=== PATIENT | female | born 1980 | race Caucasian/White ===

== ENCOUNTER 2024-06-29 14:27 | Outpatient (AMB) | payer BC, SELFPAY ==
[2024-06-29 14:37] VITALS: BP 108/66; PULSE 80; O2SAT 98; BMI 28.0
--- NOTE | 2024-06-29 14:37 | MHC.OFFVIS ---
Vital Signs 06/29/24 14:37 Height 5 ft 8 in Weight 184 lb 2 oz BMI 28.0 BP 108/66 Blood Pressure Location Lt brachial Position Sitting Pulse 80 Pulse Source Pulse Oximeter Pulse Oximetry (%) 98 Oxygen Delivery Method Room Air Intake Visit Reasons: persistent cough Allergies No Known Allergies Allergy (Verified 06/29/24 14:40) HPI HPI persistent cough: Details: Ynes is a pleasant 44-year-old female, former minimal smoker, with underlying asthma and hypothyroidism. She was referred by PCP for pulmonary evaluation for chronic cough. She reports symptoms started at the end of March with productive cough, chest tightness, wheezing and dyspnea with exertion. She was prescribed prednisone as well as azithromycin with minimal effect. Chest x-rays have been reportedly negative. She was then switched to Augmentin and started on Wixela on 06/24 with 75% improvement in symptoms. She has two days left of abx. She still reports labored breathing with prolonged talking or exertion and dry cough, using albuterol 1-2 times per day with good effect. She denies wheezing or chest tightness. She reports after URI prolonged respiratory symptoms usually requiring prednisone on an annual basis for many years. She denies prior history of asthma but PCP recently diagnosed given clinical features. She reports paternal grandmother with asthma otherwise no pertinent family history. She reports seasonal allergies uses Zyrtec on a daily basis and Flonase p.r.n., no recent allergy testing. She does have a dog at home. [facility] Social History (Updated 06/29/24 @ 14:40 by Addie Feliciano [facility]) Patient Tobacco Use Status: Former Tobacco user Review of Systems Const Denies chills, Denies excessive sweating, Denies fever(s), Denies headache(s) and Denies night sweats Eyes Denies dry eyes, Denies irritation and Denies itchy eyes ENT Reports Normal hearing present, Denies headache(s), Denies nasal congestion, Denies nasal discharge, Reports post nasal drip and Denies sore throat Card Denies chest pain, Denies chest pain at rest, Denies chest pain with activity, Denies claudication, Denies leg edema, Reports dyspnea on exertion, Denies orthopnea and Denies paroxysmal nocturnal dyspnea Resp Denies chest congestion, Reports cough, Denies hemoptysis, Denies excessive phlegm production, Denies pain on inspiration, Denies pain with cough, Reports dyspnea on exertion, Denies stridor and Denies wheezing Musc Denies myalgias Neuro Reports Normal hearing present and Denies headache(s) Endo Denies excessive sweating Diego/Lymph Denies lymphadenopathy Aller/Immun Denies itchy eyes, Denies seasonal rhinorrhea and Denies wheezing Physical Exam Vital Signs: Last Vital Signs Pulse 80 06/29/24 14:37 BP 108/66 06/29/24 14:37 Pulse Ox 98 06/29/24 14:37 Oxygen Delivery Method Room Air 06/29/24 14:37 BMI result Body Mass Index 28.0 Const General: cooperative, healthy appearing, comfortable, no acute distress, well developed and alert Nutritional Appearance: average body habitus Orientation/consciousness: patient oriented x3 Limitations: no limitations HEENT Head: Yes normal to inspection, Yes normocephalic and Yes atraumatic Ears: hearing grossly normal bilaterally and external ears normal Eyes General: appearance normal, both eyes and all related structures Eyelids: Yes eyelids normal Sclerae: sclerae normal EOM: EOMs intact bilaterally Neck Neck: Yes normal visual inspection and Yes no lymphadenopathy Lymphatic: no lymphadenopathy noted Chest Chest palpation & inspection: normal inspection of the chest Resp Other: diminished lung sounds improved aeration with duoneb in office Effort & Inspection: normal respiratory effort, able to speak in complete sentences, no audible wheezes, Actively coughing Quality: dry, no stridor, not tachypneic, no tripod positioning and no use of accessory muscles Auscultation: diminished lung sounds Cardio Jugular venous distension: no JVD Rate: regular rate Rhythm: regular rhythm Skin Other: warm, dry General skin exam: no rashes or lesions noted Neuro General: patient oriented x3 Cranial nerves: Yes Normal hearing present Cognition (Neuro): normal cognition Gait exam (Neuro): Normal gait present Extrem General: Yes normal to inspection, Yes capillary refill normal, Yes no clubbing, cyanosis or edema and Yes no pedal edema Psych Appearance: grossly normal and well kempt Speech and movement: Normal speech and movement present and Clear speech present Affect: normal affect Attitude: cooperative Thought process: Normal thought process present Thought content: Normal thought content present Insight: Good insight present (Psych) Judgement: Good judgement present (Psych) Assessment & Plan Assessment & Plan (1) Asthma: Code(s): J45.909 - Unspecified asthma, uncomplicated Category: Medical (2) Environmental allergies: Code(s): Z91.09 - Other allergy status, other than to drugs and biological substances Category: Medical Plan Ynes presents for pulmonary evaluation for chronic cough. She reports significant improvements with Augmentin and Wixela, advised to continue. She is aware to call if symptoms worsen. Will send for PFT to assess for any obstructive defect. Will send for RAST to assess for any allergic component. All questions were answered and patient is in agreement of plan. Will follow-up in 4-6 weeks or sooner if needed. Orders: Orders Resp Allergy Profile Region I Today Z91.09 - Other allergy status, other than to drugs and biological substances PFT pulmonary function test Today J45.909 - Unspecified asthma, uncomplicated Complete Blood Count Auto Diff Today Z91.09 - Other allergy status, other than to drugs and biological substances Immunoglobulin E Today Z91.09 - Other allergy status, other than to drugs and biological substances Coding Level of Care Code New Pt Level 4 (91901) Diagnoses Asthma J45.909 Environmental allergies Z91.09
== END 2024-06-29 15:25 | disposition home or self-care (01) ==
PROVIDERS: PCP Family Medicine; Visit Provider Nurse Practitioner Family
DX: J45.909 Unspecified asthma, uncomplicated (principal); Z91.09 Other allergy status, other than to drugs and biological substances
CPT/HCPCS: 99204

== ENCOUNTER → 2024-06-29 14:27 | Outpatient (BNVA) | payer BC, SELFPAY | PROVIDERS: PCP Family Medicine; Visit Provider Nurse Practitioner Family ==

== ENCOUNTER 2024-06-29 15:24 | Outpatient (REF) | payer BC, SELFPAY ==
[2024-06-29 17:31] LABS: MANUAL DIFF FLAG NO
[2024-06-29 17:38] LABS: Basophils Percent Auto 0.5 % (0-2); Eosinophils Percent Auto 0.7 % (0-4); Hematocrit 41.1 % (37.0-47.0); Hemoglobin 14.6 g/dl (12.0-16.0); Imm Gran Abs Auto 0.03 X10*3/uL (0.00-0.03); Imm Gran Pct Auto 0.5 % (0.0-0.4); Lymphocytes Absolute Auto 1.6 X10*3/uL (1.2-4.9); Lymphocytes Percent Auto 25.9 % (20-40); Mean Corpuscular HGB Conc 35.5 g/dl (31.0-35.0); Mean Corpuscular Hemoglobin 30.4 pg (27.0-33.0); Mean Corpuscular Volume 85.4 fL (80.0-98.0); Mean Platelet Volume 9.2 fL (9.4-12.3); Monocytes Absolute Auto 0.6 X10*3/uL (0.1-1.2); Monocytes Percent Auto 10.2 % (2-11); Neutrophils Absolute Auto 3.7 x10*3/uL (2.0-8.3); Neutrophils Percent Auto 62.2 % (45-73); Platelet Count 291 X10*3/uL (160-400); Red Blood Count 4.81 X10*6/uL (4.20-5.50); Red Cell Distribution Width 12.5 % (11.0-16.0)
[2024-06-30 21:18] LABS: Class Alternaria alternata 0; Class Aspergillus fumigatus 0; Class Bermuda Grass 0; Class Birch 0; Class Cat Dander 0; Class Cladosporium herbarum 0; Class Cockroach 0; Class Common Ragweed 0; Class Cottonwood 0; Class Derm. pterony 2; Class Dermatophagoides farinae 1; Class Dog Dander 0; Class Elm 0; Class Maple Box Elder 0; Class Mountain Cedar 0; Class Mouse Urine Protein 0; Class Mugwort 0; Class Oak 0; Class Penicillium crysogenum 0; Class Rough Pigweed 0; Class Sheep Sorrel 0; Class Sycamore 0; Class Timothy Grass 0; Class Walnut Tree 0; Class White Ash 0; Class White Mulberry 0; D001 IgE D pteronyssinus 0.73 kU/L; D002 - IgE D farinae 0.61 kU/L; E001 - IgE Cat Dander <0.10 kU/L; E005 - IgE Dog Dander <0.10 kU/L; E072-IgE Mouse Urine <0.10 kU/L; G002 IgE Bermuda Grass <0.10 kU/L; G006 - IgE Timothy Grass <0.10 kU/L; I006-IgE Cockroach, German <0.10 kU/L; Immunoglobulin E 26 kU/L (<OR=114); M001 IgE Penicillium chrysogen <0.10 kU/L; M002 - IgE Cladosporium herbar <0.10 kU/L; M003 - IgE Aspergillus fumigat <0.10 kU/L; M006 - IgE Alternaria alternat <0.10 kU/L; T001 IgE Maple/Box Elder <0.10 kU/L; T003 IgE Common Silver Birch <0.10 kU/L; T006 - IgE Cedar, Mountain <0.10 kU/L; T007 - IgE Oak, White <0.10 kU/L; T008 IgE Elm, American <0.10 kU/L; T010 - IgE Walnut <0.10 kU/L; T011 - IgE Maple Leaf Sycamore <0.10 kU/L; T014 - IgE Cottonwood <0.10 kU/L; T015 - IgE Ash, White <0.10 kU/L; T070 - IgE White Mulberry <0.10 kU/L; W001 - IgE Ragweed, Short <0.10 kU/L; W006 - IgE Mugwort <0.10 kU/L; W014 IgE Pigweed, Common <0.10 kU/L; W018 IgE Sheep Sorrel <0.10 kU/L
== END 2024-06-29 15:25 | disposition home or self-care (01) ==
LOC: HO.WFDLDS 15:24
PROVIDERS: Visit Provider Nurse Practitioner Family
DX: Z91.09 Other allergy status, other than to drugs and biological substances (principal)
CPT/HCPCS: 36415; 82785; 85025; 86003

== ENCOUNTER 2024-08-12 07:44 | Outpatient (REF) | payer BC, SELFPAY ==
--- NOTE | 2024-08-12 07:49 | PFT_ITS ---
Indication: Asthma Spirometry [FEV1 to FVC 89; FEV1 3.71 L; FVC 4.15 L. No significant response to bronchodilators noted.] Lung Volumes [Total lung capacity 89% predicted; expiratory reserve volume 111% predicted] Diffusion Capacity [DLCO 104% predicted] Comparisons [none] Interpretation [No obstructive nor restrictive ventilatory defects identified. No significant response to bronchodilators noted. Normal lung volumes. Normal diffusing capacity. This is consistent with normal lung mechanics. If asthma is in differential methacholine shortness short be helpful in assessing for hyperreactive airways. Clinical correlation warranted.] MTDD
[2024-08-12 09:21] VITALS: PULSE 73; O2SAT 99
== END 2024-08-12 07:45 | disposition home or self-care (01) ==
LOC: HO.RESP 07:44
PROVIDERS: Visit Provider Nurse Practitioner Family
DX: J45.909 Unspecified asthma, uncomplicated (principal)
CPT/HCPCS: 94010; 94640; 94727; 94729

== ENCOUNTER → 2024-08-12 07:49 | Outpatient (BNV) | payer BC, SELFPAY | PROVIDERS: Visit Provider Hospitalist | DX: J45.909 Unspecified asthma, uncomplicated (principal) | CPT/HCPCS: 94060; 94727; 94729 ==

== ENCOUNTER 2024-08-19 10:10 | Outpatient (AMB) | payer BC, SELFPAY ==
[2024-08-19 10:41] VITALS: BP 118/62; PULSE 71; O2SAT 99; BMI 28.1
--- NOTE | 2024-08-19 10:41 | A.OFFVIS_ITS ---
Vital Signs 08/19/24 10:41 Height 5 ft 8 in Weight 185 lb BMI 28.1 BP 118/62 Blood Pressure Location Lt brachial Position Sitting Pulse 71 Pulse Source Pulse Oximeter Pulse Oximetry (%) 99 Oxygen Delivery Method Room Air Intake Visit Reasons: Asthma Defense Analyst Required: No Commutator Operator: Commutator Operator offered & declined Accompanied by: Self / Same As Patient Allergies No Known Allergies Allergy (Verified 08/19/24 10:46) Medication List - Last Reconciled 08/19/24 by Shreya Biggs LPN albuterol sulfate 90 mcg/actuation 2 puffs inhalation Q4-6H PRN cetirizine (Zyrtec) 10 mg PO DAILY PRN fluoxetine (Prozac) 40 mg PO DAILY fluticasone propion-salmeterol 100-50 mcg/dose (Wixela Inhub) 1 inh inhalation BID semaglutide (weight loss) (Wegovy) 2.4 mg subcut QWEEK thyroid (pork) ([place] Thyroid) 15 mg PO DAILY thyroid (pork) ([place] Thyroid) 60 mg PO DAILY HPI HPI Asthma: Details: Ynes is a pleasant 44-year-old female, former minimal smoker, with underlying asthma and hypothyroidism. She was initially referred by PCP for pulmonary evaluation for chronic cough however treated with Augmentin and has had resolution of cough. She has been maintained on Wixela 100 mcg and continues with dyspnea on exertion and inability to fully inspire. Since the last visit, patient reports new rx of omeprazole for possible silent reflux contributing to persistent nausea/vomiting. Today she presents to review PFT and RAST. She denies any visits to urgent care or hospitalizations related to respiratory distress since the last visit. [facility] Social History (Updated 06/29/24 @ 14:40 by Addie Feliciano [facility]) Patient Tobacco Use Status: Former Tobacco user Review of Systems Const Denies chills, Denies excessive sweating, Denies fever(s), Denies headache(s) and Denies night sweats Eyes Denies dry eyes, Denies irritation and Denies itchy eyes ENT Reports Normal hearing present, Denies headache(s), Denies nasal congestion, Denies nasal discharge, Reports post nasal drip and Denies sore throat Card Denies chest pain, Denies chest pain at rest, Denies chest pain with activity, Denies claudication, Denies leg edema, Reports dyspnea on exertion, Denies orthopnea and Denies paroxysmal nocturnal dyspnea Resp Denies chest congestion, Denies cough, Denies hemoptysis, Denies excessive phlegm production, Denies pain on inspiration, Denies pain with cough, Reports dyspnea on exertion, Denies stridor and Denies wheezing Musc Denies myalgias Neuro Reports Normal hearing present and Denies headache(s) Endo Denies excessive sweating Diego/Lymph Denies lymphadenopathy Aller/Immun Denies itchy eyes, Denies seasonal rhinorrhea and Denies wheezing Physical Exam Vital Signs: Last Vital Signs Pulse 71 08/19/24 10:41 BP 118/62 08/19/24 10:41 Pulse Ox 99 08/19/24 10:41 Oxygen Delivery Method Room Air 08/19/24 10:41 BMI result Body Mass Index 28.1 Const General: cooperative, healthy appearing, comfortable, no acute distress, well developed and alert Nutritional Appearance: average body habitus Orientation/consciousness: patient oriented x3 Limitations: no limitations HEENT Head: Yes normal to inspection, Yes normocephalic and Yes atraumatic Ears: hearing grossly normal bilaterally and external ears normal Eyes General: appearance normal, both eyes and all related structures Eyelids: Yes eyelids normal Sclerae: sclerae normal EOM: EOMs intact bilaterally Neck Neck: Yes normal visual inspection and Yes no lymphadenopathy Lymphatic: no lymphadenopathy noted Chest Chest palpation & inspection: normal inspection of the chest Resp Effort & Inspection: normal respiratory effort, able to speak in complete sentences, no audible wheezes, Actively coughing Quality: dry, no stridor, not tachypneic, no tripod positioning and no use of accessory muscles Auscultation: diminished lung sounds Cardio Jugular venous distension: no JVD Rate: regular rate Rhythm: regular rhythm Skin Other: warm, dry General skin exam: no rashes or lesions noted Neuro General: patient oriented x3 Cranial nerves: Yes Normal hearing present Cognition (Neuro): normal cognition Gait exam (Neuro): Normal gait present Extrem General: Yes normal to inspection, Yes capillary refill normal, Yes no clubbing, cyanosis or edema and Yes no pedal edema Psych Appearance: grossly normal and well kempt Speech and movement: Normal speech and movement present and Clear speech present Affect: normal affect Attitude: cooperative Thought process: Normal thought process present Thought content: Normal thought content present Insight: Good insight present (Psych) Judgement: Good judgement present (Psych) Assessment & Plan Assessment & Plan (1) Asthma: Code(s): J45.909 - Unspecified asthma, uncomplicated Category: Medical (2) Allergic rhinitis: Code(s): J30.9 - Allergic rhinitis, unspecified Category: Medical Plan Reviewed PFT which revealed no obstructive nor restrictive ventilatory defects identified. No significant response to bronchodilators noted. Normal lung volumes and diffusing capacity. RAST + dust mites. She continues to report suboptimal effect with Wixela 100mcg, will increase to 250 mcg and add singulair. Side effects reviewed. All questions were answered and patient is in agreement of plan. Will follow up in 6-8 weeks or sooner if needed. Medications: New montelukast (Singulair) 10 mg PO BEDTIME 30 tabs 3RF fluticasone propion-salmeterol 250-50 mcg/dose (Wixela Inhub) 1 inh inhalation Q12H 60 ea 3RF Coding Level of Care Code Est Pt Level 4 (74498) Diagnoses Asthma J45.909 Allergic rhinitis J30.9
--- OUTSIDE RECORDS SUMMARY | 2024-08-19 10:49 | XMS_ITS ---
Author Organization Unknown Problems Problem Status Start date Recorded date Hypercholesteremia active 2023-05-11 2023-04-20 3T18:54:45Z Obesity active 2023-02-25 9949-06-51L10:4 2:34Z Fatty liver active 2023-03-06 8331-21-65X82:5 4:54Z Facial injury active 2023-05-11 6441-28-20E65: 51:53Z Breast cancer screening by mammogram active 2022 Immunization counseling active 2023-02-252023T20:57:49Z Encounter for wellness examination active 2023-07 Skin cancer screening active 2024-06-082023-07T20:58:44Z Colon cancer screening active 2023-02-2503-06T18:55:09Z Hypothyroidism active 2023-02-25 3260-90-92M96 :23:09Z Facial twitching resolved 2023-02-25 2023-05-11T 18:51:19Z Asthma active 2024-06-08 7986-26-29I06:0 2:30Z Cardiac risk counseling active 2023-02-252022T16:05:53Z Psychophysiologic sleep disorder active Anxiety active 2023-02-25 8783-98-82Y49:3 4:27Z Cervical cancer screening active 2023-02-2512-06-20T20:58:32Z Vital Signs Observation / Date Jun 08, 2024 Aug 17, 2024 Body Mass Index (BMI) 27.22 kg/m2 27.22 kg/m 2 Height 172.72 cm Weight 81.01429196227108 kg 81.11231054 069943 kg Plan of Treatment Description Planned Activity Planned Timing - Referral to a GI specialist for further evaluation. Referral for a psychiatric consultation, with a preference for telehealth.Symp toms may be related to stress and anxiety, potentially indicative of IBS. Differential diagnosis includes possible acid-related issues.Referral to a GI specialist for further evaluation, including potential EGD. Prescription for Prilosec to manage potential acid issues. Recommendation to follow a clear liquid diet for a few days, then progress to a bland diet. Prescription for Zofran for nausea as needed. Referral for psychiatric evaluation to address stress and anxiety.Risks and side effects: Advised to seek emergent care if experiencing bloody vomiting or diarrhea.Referr al to a GI specialist for further evaluation, including potential EGD. Prescription for Prilosec to manage potential acid issues. Recommendation to follow a clear liquid diet for a few days, then progress to a bland diet. Prescription for Zofran for nausea as needed. Referral for psychiatric evaluation to address stress and anxiety.High stress levels due to work, potentially contributing to GI symptoms.Referr al for psychiatric evaluation, with preference for telehealth services. Aug 17, 29, 29, 29, 29, 2024Jan 29, 2024 Encounters Encounter Type Performer Location Encounter Date Encoun ter Notes unknown [facility] no notes unknown Poppy Garcia - n o notes unknown [facility] no notes unknown CHRIS [facility] no notes unknown Z[facility] no notes Patient Care team information Name Category Status Period Participants - - Proposed period not known - - - Proposed period not known - - - Proposed period not known - - - Proposed period not known - - - Proposed period not known - - Episode of care-focu sed care team Proposed 2180-33-31X88:02:42+00:00 - 1793-02-33Y13:02:42+00:00 - - Episode of care-focu sed care team Proposed 0306-79-42L29:02:44+00:00 - 9953-99-77U41:02:44+00:00 - - Episode of care-focu sed care team Proposed 8915-01-26P68:50:59+00:00 - 3111-95-61Y40:50:59+00:00 - - Episode of care-focu sed care team Proposed 5790-12-68Z70:16:23+00:00 - 7158-97-99S90:16:23+00:00 - - Episode of care-focu sed care team Proposed 2535-24-23I64:51:39+00:00 - 7337-74-49M35:51:39+00:00 - Notes Author - Date Note - 8554-39-66Z23:02:4 5+00:00 No data available - 6735-57-78L12:51:3 9+00:00 No data available 2024-06-13 10:44:25 Asthma - 5730-50-48X41:02:43+00:00* No data available - 1821-23-14G75:16:23+00:00* Date of Service Physical Exam 2024-08-17 11:30:00 General: Well appear ing, no acute distressResp: Unlabored breathingPsych: Appropriate affect - 0478-21-88I48:16:23+00:00no notes- 9424-98-01U57:50:59+00:00no notes- 7984-53-19J68:16:23+00:00* Date of Service Review of Systems 2024-08-17 11:30:00 General: Denies feve rs or chillsResp: Denies shortness of breathCVS: Denies chest painGI: positive for nausea, vomiting, diarrhea, and constipationGU: Denies dysuria, hematuria, or urinary frequency - 6511-90-38H31:02:43+00:00* No data available - 0282-50-88F78:02:45+00:00* Date of Service Assessments 2024-06-24 07:58:26 Asthma - 4400-50-50E48:02:43+00:00no notes- 9910-45-97G83:50:59+00:00* Date of Service Assessments 2024-06-08 12:15:00 Encounter for amirah ss examinationEncounter for behavioral health screeningEncounter for counseling regarding immunizationColon cancer screeningBreast cancer screeningCervical cancer screeningAsthmaSkin cancer screeningHypothyroidismAnxietyPsychophysiologic sleep disorderHistory of obesityHypercholesteremiaFatty liver - 7053-86-01H30:02:43+00:00* Date of Service Assessments 2024-08-15 09:24:20 Vomiting - 9061-30-84K21:50:59+00:00* Date of Service Physical Exam 2024-06-08 12:15:00 General: Well-appear ing, no acute distressResp: No cough, SOB or wheezing, normal RRNS: Alert & oriented x 3Psych: Normal mood and affect - 0577-34-92J34:51:39+00:00* No data available - 4281-87-51L08:16:23+00:00* Date of Service Assessments 2024-08-17 11:30:00 Abdominal painNausea & vomitingStress at work - 7055-51-76J02:50:59+00:00* Date of Service Review of Systems 2024-06-08 12:15:00 General: All other p ertinent ROS negative - 7047-96-03O03:02:45+00:00* No data available - 5946-32-25T96:51:39+00:00no notes
== END 2024-08-19 11:19 | disposition home or self-care (01) ==
PROVIDERS: PCP Family Medicine; Visit Provider Nurse Practitioner Family
DX: J45.909 Unspecified asthma, uncomplicated (principal); J30.9 Allergic rhinitis, unspecified
CPT/HCPCS: 99214

== ENCOUNTER → 2024-08-19 10:10 | Outpatient (BNVA) | payer BC, SELFPAY | PROVIDERS: PCP Family Medicine; Visit Provider Nurse Practitioner Family ==

== ENCOUNTER 2024-08-30 10:20 | Outpatient (AMB) | payer BC, SELFPAY ==
[2024-08-30 10:36] VITALS: BP 122/60; PULSE 81; O2SAT 97; BMI 27.5
--- NOTE | 2024-08-30 10:36 | MHC.OFFVIS ---
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 Electric Required: No Head Waiter: Head Waiter offered & declined Accompanied by: Self / Same As Patient Allergies No Known Allergies Allergy (Verified 08/30/24 10:40) Medication List - Last Reconciled 08/30/24 by Shreya Biggs LPN albuterol sulfate 90 mcg/actuation 2 puffs inhalation Q4-6H PRN cetirizine (Zyrtec) 10 mg PO DAILY PRN fluoxetine (Prozac) 40 mg PO DAILY fluticasone propion-salmeterol 250-50 mcg/dose (Wixela Inhub) 1 inh inhalation Q12H montelukast (Singulair) 10 mg PO BEDTIME semaglutide (weight loss) (Wegovy) 2.4 mg subcut QWEEK thyroid (pork) ([place] Thyroid) 15 mg PO DAILY thyroid (pork) ([place] Thyroid) 60 mg PO DAILY HPI HPI Sick looking for antibiotics/pred: Details: Ynes is a pleasant 44-year-old female, former minimal smoker, with underlying asthma and hypothyroidism. She was initially referred by PCP for pulmonary evaluation for chronic cough however treated with Augmentin in June and has had resolution of cough. At the last visit, she Wixela was increased to 250 mcg as she continued to report dyspnea on exertion and inability to fully inspire. Unfortunately, she developed URI with chest congestion, difficulty expectorating, chest tightness and dyspnea over the last week. She denies fevers, endorses chills, no known sick contacts. She has been using albuterol MDI with moderate effect. FOR[facility]LY [facility] Social History Patient Tobacco Use Status: Former Tobacco user Review of Systems Const Denies excessive sweating, Denies fever(s), Denies headache(s) and Denies night sweats Eyes Denies dry eyes, Denies irritation and Denies itchy eyes ENT Reports Normal hearing present, Denies headache(s), Denies nasal congestion, Denies nasal discharge, Denies post nasal drip and Denies sore throat Card Denies chest pain, Denies chest pain at rest, Denies chest pain with activity, Denies claudication, Denies leg edema, Denies orthopnea and Denies paroxysmal nocturnal dyspnea Resp Denies excessive phlegm production, Denies pain on inspiration, Denies pain with cough, Denies stridor and Denies wheezing Musc Denies myalgias Neuro Reports Normal hearing present and Denies headache(s) Endo Denies excessive sweating Diego/Lymph Denies lymphadenopathy Aller/Immun Denies itchy eyes, Denies seasonal rhinorrhea and Denies wheezing Physical Exam Vital Signs: Last Vital Signs Pulse 81 08/30/24 10:36 BP 122/60 08/30/24 10:36 Pulse Ox 97 08/30/24 10:36 Oxygen Delivery Method Room Air 08/30/24 10:36 BMI result Body Mass Index 27.5 Const General: cooperative, healthy appearing, no acute distress, well developed and alert Orientation/consciousness: patient oriented x3 Limitations: no limitations HEENT Head: Yes normal to inspection, Yes normocephalic and Yes atraumatic Ears: hearing grossly normal bilaterally and external ears normal Eyes General: appearance normal, both eyes and all related structures Eyelids: Yes eyelids normal Sclerae: sclerae normal EOM: EOMs intact bilaterally Neck Neck: Yes normal visual inspection and Yes no lymphadenopathy Lymphatic: no lymphadenopathy noted Chest Chest palpation & inspection: normal inspection of the chest Resp Other: persistent harsh cough throughout visit, with postexhalation cough throughout exam, moderately improved with DuoNeb Effort & Inspection: normal respiratory effort, able to speak in complete sentences, no audible wheezes, no stridor, not tachypneic, no tripod positioning and no use of accessory muscles Auscultation: crackles on the left in the lower lung cisse Cardio Jugular venous distension: no JVD Rate: regular rate Rhythm: regular rhythm Skin Other: warm, dry General skin exam: no rashes or lesions noted Neuro General: patient oriented x3 Cranial nerves: Yes Normal hearing present Cognition (Neuro): normal cognition Gait exam (Neuro): Normal gait present Extrem General: Yes normal to inspection, Yes capillary refill normal, Yes no clubbing, cyanosis or edema and Yes no pedal edema Psych Appearance: grossly normal and well kempt Speech and movement: Normal speech and movement present and Clear speech present Affect: normal affect Attitude: cooperative Thought process: Normal thought process present Thought content: Normal thought content present Insight: Good insight present (Psych) Judgement: Good judgement present (Psych) Office Procedures Nebulizer Treatment Nebulizer Treatment 37963-Ofovaiult/MDI RX initial, or Nebulizer Subsequent Treatment Office Meds ipratropium 0.5 mg-albuterol 3 mg (2.5 mg base)/3 mL nebulization soln Performing Provider: Jessica Mosley NP Performing Location: [facility] Administered by: Shreya Biggs LPN on 08/30/24 11:06 Dose Route Admin Location Dispensed Lot Number Expiration Date NDC Tour Actor 3 mL inhalation 3 mL [id number] 03/19/26 92736-855-86 [place] Assessment & Plan Assessment & Plan (1) Asthma: Code(s): J45.909 - Unspecified asthma, uncomplicated Category: Medical (2) Allergic rhinitis: Code(s): J30.9 - Allergic rhinitis, unspecified Category: Medical Plan Will treat bronchitic symptoms with doxycycline and prednisone. Will also send for CXR as LLL inspiratory crackles appreciated. She is aware to call if symptoms do not improve. Will also send nebulizer with albuterol solution for home use. All questions were answered and patient is in agreement of plan. Will follow up for regularly scheduled appt or sooner if needed. Orders: Orders AMB Nebulizer Treatment Today J45.909 - Unspecified asthma, uncomplicated XR chest 2V Today R05.9 - Cough, unspecified Medications: New albuterol sulfate 2.5 mg (3 mL) inhalation Q4-6H PRN 180 mL 3RF shortness of breath or wheezing prednisone see taper instructions; 40 mg Daily x3 days, 30 mg daily x3 days, 20 mg daily x3 days, 10 mg daily x3 days 10 mg PO DIRECTED 30 tabs 0RF doxycycline hyclate 100 mg PO BID 14 caps 0RF Coding Level of Care Code Est Pt Level 4 (19431) Diagnoses Asthma J45.909 Allergic rhinitis J30.9 CPT Codes Nebulizer Treatment - Nebulizer Treatment, initial or subsequent: 50031-Hypcsxeuu/MDI RX initial, or Nebulizer Subsequent Treatment ([id number])
== END 2024-08-30 12:40 | disposition home or self-care (01) ==
PROVIDERS: PCP Family Medicine; Visit Provider Nurse Practitioner Family
DX: J45.909 Unspecified asthma, uncomplicated (principal); J30.9 Allergic rhinitis, unspecified
CPT/HCPCS: 99214

== ENCOUNTER → 2024-08-30 10:20 | Outpatient (BNVA) | payer BC, SELFPAY | PROVIDERS: PCP Family Medicine; Visit Provider Nurse Practitioner Family | DX: J45.909 Unspecified asthma, uncomplicated (principal); E03.9 Hypothyroidism, unspecified | CPT/HCPCS: 94640 ==

== ENCOUNTER 2024-09-01 15:36 | Outpatient (REF) | payer BC, SELFPAY ==
--- NOTE | ~2024-09-01 | XR_ITS ---
EXAMINATION: XR CHEST 2 VIEWS HISTORY: R05.9 - Cough, unspecified COMPARISON: Comparison is made with the prior examination dated 07/22/2018. FINDINGS: PA and lateral views of the chest are submitted. The lungs are expanded and clear. There is no pleural effusion, pneumothorax, or pulmonary vascular congestion. The heart is normal in size. There is mild degenerative disc disease of the spine. XR/XR chest 2V IMPRESSION: No acute cardiopulmonary abnormality. Electronically signed by: Tarik Bell MD 09/02/2024 08:03 AM JHOANA
--- OUTSIDE RECORDS SUMMARY | 2024-09-01 15:39 | XMS_ITS ---
Author Organization Unknown Problems Problem Status Start date Recorded date Hypercholesteremia active 2023-05-11 2023-04-20 3T18:54:45Z Obesity active 2023-02-25 6148-78-30G31:4 2:34Z Fatty liver active 2023-03-06 8422-13-86X15:5 4:54Z Facial injury active 2023-05-11 2899-57-68R65: 51:53Z Breast cancer screening by mammogram active 2022 Immunization counseling active 2023-02-252023T20:57:49Z Encounter for wellness examination active 2023-07 Skin cancer screening active 2024-06-082023-07T20:58:44Z Colon cancer screening active 2023-02-2503-06T18:55:09Z Hypothyroidism active 2023-02-25 0403-66-40W31 :23:09Z Facial twitching resolved 2023-02-25 2023-05-11T 18:51:19Z Asthma active 2024-06-08 7907-01-28K92:0 2:30Z Cardiac risk counseling active 2023-02-252022T16:05:53Z Psychophysiologic sleep disorder active Anxiety active 2023-02-25 7541-73-39D15:3 4:27Z Cervical cancer screening active 2023-02-2512-06-20T20:58:32Z Vital Signs Observation / Date Jun 08, 2024 Aug 17, 2024 Body Mass Index (BMI) 27.22 kg/m2 27.22 kg/m 2 Height 172.72 cm Weight 81.93056282331976 kg 81.56549992 054765 kg Plan of Treatment Description Planned Activity Planned Timing - Referral to a GI specialist for further evaluation. Referral for a psychiatric consultation, with a preference for telehealth.Sym ptoms may be related to stress and anxiety, potentially indicative of IBS. Differential diagnosis includes possible acid-related issues.Referra l to a GI specialist for further evaluation, [...] emergent care if experiencing bloody vomiting or diarrhea.Refer ral to a GI specialist for further evaluation, including potential EGD. Prescription for Prilosec to manage potential acid issues. Recommendation to follow a clear liquid diet for a few days, then progress to a bland diet. Prescription for Zofran for nausea as needed. Referral for psychiatric evaluation to address stress and anxiety.High stress levels due to work, potentially contributing to GI symptoms.Refer ral for psychiatric evaluation, with preference for telehealth services. Aug 17, 29, 29, 29, 29, 2024Jan 29, 2024 Encounters Encounter Type Performer Location Encounter Date Encoun ter Notes unknown Z[facility] no notes unknown Poppy Garcia - n o notes unknown Lynn [facility] no notes unknown Zee [facility] no notes unknown CHRIS ATKINS [facility] no notes unknown Zee [facility] no notes Patient Care team information Name Category Status Period Participants - - Proposed period not known - - - Proposed period not known - - - Proposed period not known - - - Proposed period not known - - - Proposed period not known - - Episode of care-focu sed care team Proposed 3641-30-61B30:02:42+00:00 - 5051-68-94A57:02:42+00:00 - - Episode of care-focu sed care team Proposed 4688-76-45E78:02:44+00:00 - 4728-89-64R80:02:44+00:00 - - Episode of care-focu sed care team Proposed 3666-19-97N18:50:59+00:00 - 6577-45-94Z98:50:59+00:00 - - Episode of care-focu sed care team Proposed 0713-19-55P24:16:23+00:00 - 7599-16-35G36:16:23+00:00 - - Episode of care-focu sed care team Proposed 4722-21-97B93:21:13+00:00 - 1691-44-99T06:21:13+00:00 - - Episode of care-focu sed care team Proposed 4655-87-66K12:51:39+00:00 - 0602-50-51A72:51:39+00:00 - Notes Author - Date Note - 9932-40-28A85:02:4 5+00:00 No data available - 1172-05-14P33:51:3 9+00:00 No data available 2024-06-13 10:44:25 Asthma - 7563-75-75O00:02:43+00:00* No data available - 7577-61-63Z43:21:14+00:00* Date of Service Physical Exam 2024-08-17 11:30:00 General: Well appear ing, no acute distressResp: Unlabored breathingPsych: Appropriate affect - 6277-11-66Z85:16:23+00:00* Date of Service Physical Exam 2024-08-17 11:30:00 General: Well appear ing, no acute distressResp: Unlabored breathingPsych: Appropriate affect - 5546-36-12B54:16:23+00:00no notes- 2676-74-34G68:21:14+00:00* Date of Service Assessments 2024-08-17 11:30:00 Abdominal painNausea & vomitingStress at work - 6435-34-43D56:50:59+00:00no notes- 2092-49-58F21:16:23+00:00* Date of Service Review of Systems 2024-08-17 11:30:00 General: Denies feve rs or chillsResp: Denies shortness of breathCVS: Denies chest painGI: positive for nausea, vomiting, diarrhea, and constipationGU: Denies dysuria, hematuria, or urinary frequency - 0553-27-36R65:02:43+00:00* No data available - 0762-83-64Q06:02:45+00:00* Date of Service Assessments 2024-06-24 07:58:26 Asthma - 8230-05-52H59:02:43+00:00no notes- 9820-35-27N41:50:59+00:00* Date of Service Assessments 2024-06-08 12:15:00 Encounter for amirah ss examinationEncounter for behavioral health screeningEncounter for counseling regarding immunizationColon cancer screeningBreast cancer screeningCervical cancer screeningAsthmaSkin cancer screeningHypothyroidismAnxietyPsychophysiologic sleep disorderHistory of obesityHypercholesteremiaFatty liver - 1021-32-56I54:21:14+00:00no notes- 8305-31-24H04:02:43+00:00* Date of Service Assessments 2024-08-15 09:24:20 Vomiting - 8439-46-21C87:50:59+00:00* Date of Service Physical Exam 2024-06-08 12:15:00 General: Well-appear ing, no acute distressResp: No cough, SOB or wheezing, normal RRNS: Alert & oriented x 3Psych: Normal mood and affect - 5550-41-55J85:21:14+00:00* Date of Service Review of Systems 2024-08-17 11:30:00 General: Denies feve rs or chillsResp: Denies shortness of breathCVS: Denies chest painGI: positive for nausea, vomiting, diarrhea, and constipationGU: Denies dysuria, hematuria, or urinary frequency - 0947-05-57D25:51:39+00:00* No data available - 5538-39-60P95:16:23+00:00* Date of Service Assessments 2024-08-17 11:30:00 Abdominal painNausea & vomitingStress at work - 2083-51-16U97:50:59+00:00* Date of Service Review of Systems 2024-06-08 12:15:00 General: All other p ertinent ROS negative - 3853-53-73P03:02:45+00:00* No data available - 2084-33-22W03:51:39+00:00no notes
== END 2024-09-01 15:37 | disposition home or self-care (01) ==
LOC: HO.XRAY 15:36
PROVIDERS: Visit Provider Nurse Practitioner Family
DX: R05.9 Cough, unspecified (principal)
CPT/HCPCS: 71046

== ENCOUNTER → 2024-09-01 15:41 | Outpatient (BNV) | payer BC, SELFPAY | PROVIDERS: Visit Provider Radiology Diagnostic Radiology | DX: R05.9 Cough, unspecified (principal) | CPT/HCPCS: 71046 ==

== ENCOUNTER 2024-09-27 10:07 | Outpatient (AMB) | payer BC, SELFPAY ==
[2024-09-27 10:10] VITALS: BP 104/60; PULSE 80; O2SAT 96; BMI 28.3
--- NOTE | 2024-09-27 10:10 | MHC.OFFVIS ---
Vital Signs 09/27/24 10:10 Height 5 ft 8 in Weight 186 lb BMI 28.3 BP 104/60 Blood Pressure Location Rt brachial Position Sitting Pulse 80 Pulse Source Pulse Oximeter Pulse Oximetry (%) 96 Oxygen Delivery Method Room Air Intake Visit Reasons: asthma Entry Level Machine Operator Required: No Tdp Displays Analyst: Tdp Displays Analyst offered & declined Accompanied by: Self / Same As Patient Allergies No Known Allergies Allergy (Verified 09/27/24 10:15) Medication List - Last Reconciled 09/27/24 by Shreya Biggs LPN albuterol sulfate 2.5 mg (3 mL) inhalation Q4-6H PRN albuterol sulfate 90 mcg/actuation 2 puffs inhalation Q4-6H PRN cetirizine (Zyrtec) 10 mg PO DAILY PRN fluoxetine (Prozac) 40 mg PO DAILY fluticasone propion-salmeterol 250-50 mcg/dose (Wixela Inhub) 1 inh inhalation Q12H montelukast (Singulair) 10 mg PO BEDTIME semaglutide (weight loss) (Wegovy) 2.4 mg subcut QWEEK thyroid (pork) ([place] Thyroid) 15 mg PO DAILY thyroid (pork) ([place] Thyroid) 60 mg PO DAILY HPI HPI asthma: Details: Ynes is a pleasant 44-year-old female, former minimal smoker, with underlying asthma and hypothyroidism. She was initially referred by PCP for pulmonary evaluation for chronic cough treated with Augmentin in June, had resolution of cough but symptoms recurred. At the last visit, she was treated with doxycycline and prednisone, noting symptoms significantly improved about two weeks ago. She has been using Wixela 250 mcg with good effect, rarely requiring albuterol MDI. She reports minimal dry cough and episodes of dyspnea, resolving with albuterol use. She continues to have GI issues with persistent nausea/vomiting, thought to have cyclical vomiting syndrome, through recent GI evaluation. COUNTS INCLUDE 234 BEDS AT THE [facility] Social History Patient Tobacco Use Status: Former Tobacco user Review of Systems Const Denies chills, Denies excessive sweating, Denies fever(s), Denies headache(s) and Denies night sweats Eyes Denies dry eyes, Denies irritation and Denies itchy eyes ENT Reports Normal hearing present, Denies headache(s), Denies nasal congestion, Denies nasal discharge, Denies post nasal drip and Denies sore throat Card Denies chest pain, Denies chest pain at rest, Denies chest pain with activity, Denies claudication, Denies leg edema, Denies orthopnea and Denies paroxysmal nocturnal dyspnea Resp Denies chest congestion, Denies excessive phlegm production, Denies pain on inspiration, Denies pain with cough, Denies stridor and Denies wheezing Musc Denies myalgias Neuro Reports Normal hearing present and Denies headache(s) Endo Denies excessive sweating Diego/Lymph Denies lymphadenopathy Aller/Immun Denies itchy eyes, Denies seasonal rhinorrhea and Denies wheezing Physical Exam Vital Signs: Last Vital Signs Pulse 80 09/27/24 10:10 BP 104/60 09/27/24 10:10 Pulse Ox 96 09/27/24 10:10 Oxygen Delivery Method Room Air 09/27/24 10:10 BMI result Body Mass Index 28.3 Const General: cooperative, healthy appearing, comfortable, no acute distress, well developed and alert Orientation/consciousness: patient oriented x3 Limitations: no limitations HEENT Head: Yes normal to inspection, Yes normocephalic and Yes atraumatic Ears: hearing grossly normal bilaterally and external ears normal Eyes General: appearance normal, both eyes and all related structures Eyelids: Yes eyelids normal Sclerae: sclerae normal EOM: EOMs intact bilaterally Neck Neck: Yes normal visual inspection and Yes no lymphadenopathy Lymphatic: no lymphadenopathy noted Chest Chest palpation & inspection: normal inspection of the chest Resp Effort & Inspection: normal respiratory effort, able to speak in complete sentences, no audible wheezes, no cough, no stridor, not tachypneic, no tripod positioning and no use of accessory muscles Auscultation: clear to auscultation bilaterally Cardio Jugular venous distension: no JVD Rate: regular rate Rhythm: regular rhythm Skin Other: warm, dry General skin exam: no rashes or lesions noted Neuro General: patient oriented x3 Cranial nerves: Yes Normal hearing present Cognition (Neuro): normal cognition Gait exam (Neuro): Normal gait present Extrem General: Yes normal to inspection, Yes capillary refill normal, Yes no clubbing, cyanosis or edema and Yes no pedal edema Psych Appearance: grossly normal and well kempt Speech and movement: Normal speech and movement present and Clear speech present Affect: normal affect Attitude: cooperative Thought process: Normal thought process present Thought content: Normal thought content present Insight: Good insight present (Psych) Judgement: Good judgement present (Psych) Assessment & Plan Assessment & Plan (1) Asthma: Code(s): J45.909 - Unspecified asthma, uncomplicated Category: Medical (2) Allergic rhinitis: Code(s): J30.9 - Allergic rhinitis, unspecified Category: Medical Plan Ynes reports good control of respiratory symptoms on current regimen, advised to continue. She is aware to call if symptoms become less controlled especially with the change of seasons. We did discuss the possibility of microaspiration component with persistent vomiting, which she is under evaluation through GI to better control. All questions were answered and patient is in agreement of plan. Will follow up in three months or sooner if needed. Coding Level of Care Code Est Pt Level 4 (79641) Diagnoses Asthma J45.909 Allergic rhinitis J30.9
--- OUTSIDE RECORDS SUMMARY | 2024-09-27 11:53 | XMS_ITS | Continuity of Care Document ---
Author Organization [facility] Address [address] [address] [place] [address] Care Team Providers Care Air Intercept Controller Name Role Phone [facility] Primary Care Provider Assessment Encounter Date Assessment Date Assessment LastModified by Organization Details LastModified Time 09/14/2024 09/14/2024 ASSESSMENT : 44-year-old female with a 1 year history of frequent nausea and vomiting. Since July she has had more frequent episodes now occurring every other day. At times she will vomit once in the morning but vomiting episodes can last throughout the day. She tends to drink coffee on an empty stomach in the morning. She often has to pull the car over to vomit and does have some motion sickness. She has been unable to find any dietary triggers. Admits that anxiety or stress could be a trigger for her. With the urge to move her bowels she often vomits if she cannot get to the bathroom in a timely manner. She has a history of hyperemesis during 2 prior pregnancies. Denies any classic reflux symptoms. Denies any workup in this regard. Denies any new medications that coincide with symptom onset. As per HPI denies alarm symptoms. DIFFERENTIAL DIAGNOSIS : The differential diagnosis for vomiting spans various systems and includes cyclic vomiting syndrome, poorly controlled acid reflux, celiac disease, H. pylori infection, biliary disorders, gastroenteritis, peptic ulcer disease, and bowel obstruction. Additional considerations include neurological issues like migraines and increased intracranial pressure, which can trigger vomiting. Metabolic disorders such as diabetic ketoacidosis and endocrine imbalances are also potential causes. Medications? p articularly chemotherapy drugs, cannabis, and opioids? c an induce vomiting. Psychiatric conditions like eating disorders may manifest with this symptom. Cardiovascular issues, especially in elderly or diabetic patients, can present with vomiting. Systemic infections and other causes like motion sickness should also be considered. PLAN : We discussed the benefits of whole person therapy and the patient is agreeable. We discussed possible differential diagnosis as above. Submit stool to rule out H. pylori and treat if indicated. As symptoms may be due to poorly controlled acid reflux, once stool sample is collected she will initiate daily omeprazole. Given she often has mold clamper symptoms I have suggest she initially try dosing in the evening. Rule out celiac, rule out anemia. We discussed the possibility of cyclical vomiting. She denies a history of migraines or marijuana use. If above interventions are ineffective we will consider interventions in this regard. In regards to colon cancer screening, she will likely need a screening colonoscopy as her last procedure was in 2019. She will be contacted with further recommendations in this regard. WHOLE PERSON THERAPY REFERRALS: REGISTERED DIETITIAN REASON FOR RD REFERRAL: Frequent nausea and vomiting, discussed diet/dietary modifications identify food triggers and interventions DETAILED REASON FOR NON-REFERRAL: BEHAVIORAL HEALTH CARE PROVIDER REASON FOR REFERRAL: Frequent nausea and vomiting with anxiety as a trigger DETAILED REASON FOR NON-REFERRAL: CC ORDERS: Was a lab order placed to [facility], [facility], [facility], or [facility]?: Does the field care coordinator need to generate a manual prescription alert because the patient has opted out of text messages?: Imaging: Medical Record Retrieval: Scope Referral: External Specialist Referral: ? CHART SIGN-OFF CHECKLIST ICD-10 Diagnosis Code ? Patient Instructions ? FOLLOW-UP (RTO REMINDER) ? Not available 09/14/2024 13:11:06 Plan of Treatment Reminders Order Date Submit Date Provider Last Modified By Organization Details Last Modified Time Details Appointments None recorded. Lab H pylori Ag, stool 2024 025 [facility], [address] [place] [address] 2nd Floor; [address],[place], [address], 13:15:52 tissue transgluta minase iga Ab, serum 2024 025 [facility], [address] [place] [address] 2nd Floor; [address],[place], [address], 5 13:15:52 iga, quantitati ve, serum 2024 025 [facility], [address] [place] [address]; [address],[place], [address], 5 13:15:52 iron + TIBC + ferritin, serum 2024 025 [facility], [address] [place] [address]; [address],[place], [address], 5 13:15:52 Referral None recorded. Procedures None recorded. Surgeries None recorded. Imaging None recorded. Medication Orders None recorded. Patient TargetsNo targets recorded. Patient Instructions Encounter Date Encounter Id Patient Instructions Last Modified By Organization Details Last Modified Time 09/14/2024 [id number] Chester Quick It was very nice to meet you today As discussed during our session, I've referred you to an [facility] Registered Dietitian. They will provide personalized nutrition care recommendations to help you better manage your condition through diet. These interventions aim to ensure you're well-nourished, improve symptom control, and enhance your overall wellness. I've also referred you to a licensed Gut-Brain Specialist. They'll assist you with tailored behavioral strategies designed to improve your GI symptoms and overall functioning. ----- Additional Instructions: - Any labs ordered during your visit today will be sent directly to your lab. - I have recommended an H. pylori test. While there are various methods to detect H. pylori, our practice recommends the stool test due to its high sensitivity. To ensure the most accurate results, please avoid the following medications prior to testing: ? PPIs (e.g., omeprazole/Prilosec , pantoprazole/Proton ix, lansoprazole/Prevac id, esomeprazole/Nexium , dexlansoprazole/Dex ilant, rabeprazole/Aciphex )* for 2 WEEKS ? Antibiotics for 4 WEEKS ? Bismuth Subsalicylate (Pepto Bismol, Kaopectate) for 2 WEEKS You may take antacids (such as Tums, Rolaids, Maalox, Gaviscon) or sodium alginate as alternatives, as these will not interfere with testing. If you test positive for H. pylori, the recommendation will be for combination of medications, including anti-reflux therapy and antibiotics. - Once stool sample has been collected initiate omeprazole 20 mg OTC every evening. Use ondansetron as needed for nausea Consider these research-backed natural remedies to help alleviate nausea and vomiting: ? Vagus nerve stimulation through humming, singing, gargling, cold water body or face submersion, yoga, and diaphragmatic breathing. ------- Please don't hesitate to reach out if you need anything. Through the [facility], you can: Self-schedule appointments with any member of your care team Chat with the Care Coordination team if you have questions Notify me of any new or worsening GI symptoms It was a pleasure meeting with you today. I look forward to seeing you in follow-up in 8 weeks. Janusz Oscar NP For billing information or questions about the cost of care, you can: Email [email or web address] or Click the following link to schedule a call with one of our billing specialists: [email or web address] Not available 09/14/2024 13:14:19 Reason for Referral None Reported. Problems Name Problem SNOMED Code Status Onset Date Resolution Date Notes Provider Name and Address Organization Details Recorded Time Irritable bowel syndrome 92831676 Completed 202409/14/2024 JANUSZ OROSCO, TARGETING ACQUISITION OFFICER [address] [address], [place], [address], [facility] [place] 12:38:47 Nausea and vomiting 95095454 Active 2024 JANUSZ OROSCO, TARGETING ACQUISITION OFFICER [address] [address], [place], [address], [facility] [place] 12:51:52 Abdominal distension, gaseous 282202386 Active 2024 JANUSZ OROSCO, TARGETING ACQUISITION OFFICER [address] [address], [place], [address], [facility] [place] 12:52:49 Problem Notes None recorded. Medical Equipment None Reported. Allergies Allergen ID Allergen Name Allergen Category Reaction Reaction Severity Criticality Documentation Date Start Date Code Code System Note Provider Name and Address Organization Details Recorded Time 12973 honey bee venom environme nt Not available Not available Not available 09/06/20242021 42497 7 RxNorm Not Available Not Available Not Available No known drug allergies Medications Name Sig Start Date Stop Date Status Note LastModified by Organization Details LastModified Time fluoxetine 40 mg capsule TAKE 1 CAPSULE BY MOUTH EVERY DAY active Not Available Not Available No t Available Max Thyroid 60 mg tablet TAKE 1 TABLET BY MOUTH EVERY DAY QITH 15MG TABLET active Not Available Not Available No t Available lamotrigine 150 mg tablet TAKE 1 TABLET BY MOUTH EVERY DAY FOR 30 DAYS 09/14 completed Not Available Not Available Not Available prednisone 10 mg tablet PLEASE SEE ATTACHED FOR DETAILED DIRECTION S 09/14 completed Not Available Not Available Not Available doxycycline hyclate 100 mg capsule TAKE 1 CAPSULE BY MOUTH TWICE A DAY 09/14 completed Not Available Not Available Not Available lamotrigine 200 mg tablet TAKE 1 TABLET BY MOUTH EVERY DAY FOR 90 DAYS 09/14 completed Not Available Not Available Not Available trazodone 50 mg tablet TAKE 1/2 - 1 TABLET BY MOUTH EVERY DAY AT BEDTIME NEEDED active Not Available Not Available No t Available azithromyci n 250 mg tablet TAKE 2 TABLETS BY MOUTH TODAY, THEN TAKE 1 TABLET DAILY FOR 4 DAYS DIRECTED WITH FOOD/YOGU RT 09/14 completed Not Available Not Available Not Available prednisone 20 mg tablet TAKE 3 TABLETS BY MOUTH EVERY DAY FOR 3 DAYS 09/14 completed Not Available Not Available Not Available lamotrigine 25 mg tablet 2 TABLET ORALLY DAILY FOR 2 WEEKS THEN INCREASE TO 3 TABS 30 DAYS 09/14 completed Not Available Not Available Not Available Max Thyroid 15 mg tablet TAKE 1 TABLET BY MOUT DAILY ON AN EMPTY STOMACH WITH 60 MG TABLET FOR TOTAL OF 75 MG DAILY active Not Available Not Available No t Available propranolol 10 mg tablet TAKE 1-2 TABLETS 1 HOUR BEFORE EVENT NEEDED. MAX 2 TABLETS PER DAY. 09/14 completed Not Available Not Available Not Available benzonatate 100 mg capsule TAKE 2 CAPSULES BY MOUTH 3 TIMES A DAY NEEDED FOR COUGH. 09/14 completed Not Available Not Available Not Available gabapentin 300 mg capsule TAKE 1 CAPSULE BY MOUTH TWICE A DAY AND 3 CAPSULES NIGHTLY active Not Available Not Available No t Available omeprazole 20 mg capsule,del ayed release TAKE 1 CAPSULE BY MOUTH EVERY DAY 1/2 TO 1 HOUR BEFORE MORNING MEAL active Not Available Not Available No t Available montelukast 10 mg tablet active Not Available Not Available Not Available gabapentin 100 mg capsule TAKE 2 CAPSULES BY MOUTH TWICE DAILY NEEDED FOR ANXIETY 09/14 completed Not Available Not Available Not Available albuterol sulfate HFA 90 mcg/actuati on aerosol inhaler INHALE 1 TO 2 PUFFS BY MOUTH EVERY 4 TO 6 HOURS NEEDED FOR SHORTNESS OF BREATH OR WHEEZING active Not Available Not Available No t Available ondansetron 4 mg disintegrat ing tablet TAKE 1 TABLET ORALLY EVERY 8 HOURS NEEDED FOR NAUSEA. active Not Available Not Available No t Available lamotrigine 100 mg tablet TAKE 1 TABLET BY MOUTH EVERY DAY FOR 30 DAYS 09/14 completed Not Available Not Available Not Available amoxicillin 875 mg-potassiu m clavulanate 125 mg tablet TAKE 1 TABLET BY MOUTH TWICE A DAY FOR 7 DAYS 09/14 completed Not Available Not Available Not Available escitalopra m 10 mg tablet TAKE 1 TABLET BY MOUTH EVERY DAY 09/14 completed Not Available Not Available Not Available Zyrtec active Not Available Not Availa ble Not Available Makenziejudyailyn Griffin [facility] spacer USE WITH INHALER DIRECTED 09/14 completed Not Available Not Available Not Available Qvar RediHaler 40 mcg/actuati on HFA breath activated aerosol INHALE 1 TO 2 PUFFS BY MOUTH TWICE A DAY 09/14 completed Not Available Not Available Not Available Wixela Inhub 250 mcg-50 mcg/dose powder for inhalation active Not Available Not Available N ot Available Wixela Inhub 100 mcg-50 mcg/dose powder for inhalation TAKE 1 PUFF BY MOUTH TWICE A DAY 09/14 completed Not Available Not Available Not Available Wegovy 2.4 mg/0.75 mL subcutaneou s pen injector active Not Available Not Available Not Available Vitals Date Recorded Body height Body mass index (BMI) Body weight Provider Name and Address Organization Details Last Updated DateTime 09/14/2024 175.26 cm 26.9 kg/m2 90598.81 g JANUSZ OROSCO APRN [address] [facility],[id number] [place] [address], [address] [place] [address] [facility] [place] 09/14/2024 12:02:07 Social History Question Answer Notes LastModified by Organizat ion Details LastModified Time Tobacco Smoking Status Never Smoker JANUSZ OROSCO APRN [address] [facility] [id number] [place] [address] [facility] [place] 09/14/2024 12:05:35 What Is Your Level Of Alcohol Consumption? Occasional 4 Per Week Information not available 09/14/2024 What Is Your Level Of Caffeine Consumption? Moderate 2 Daily Information not available 09/14/2024 What Type Of Diet Are You Following? REGULAR Information not available 09/14/2024 Do You Have A Local GI Provider? No Information not available 09/14/2024 Were You Referred To Oshi By Your Local GI Provider? No Information not available 09/14/2024 Do You Use Any Illicit Or Recreational Drugs? No Information not available 09/14/2024 Sex: Unknown Functional Status Question Answer Note LastModified by Organization D etails LastModified Time What is your exercise level? None Information not available 09/14/2024 Mental Status None recorded. Family History Nothing Reported Notes:2 paternal uncles pass ed from liver cancer, no additional family history of GI disease or malignancy Medical History Condition Response Abdominal Pain Y Anxiety/Depression Y Irritable Bowel Syndrome Y Diverticulitis/Diverticulosis Y Thyroid Disorder Y Gynecological HistoryNo gynecological history recorded. Obstetrics History GPAL:G 0 P 0 0 0 0 Past Encounters Encounter ID Performer Location Encounter Start Date Encounter Closed Date Diagnosis/Indication Diagnosis SNOMED-CT Code Diagnosis ICD10 Code Diagnosis Note [id number] JANUSZ OROSCO, TARGETING ACQUISITION OFFICER [facility] [address] [address] [place] [address] 09/14/2024 10:11:53 09/15/2024 12:16:11 Nausea and vomiting 38590822 R11.2 Abdominal distension, gaseous 533217977 R14.0 Health Concerns Section Related Observation LastModified by Organization Detai ls LastModified Time None Recorded Concern Status LastModified by Organization Details LastModified Time None Recorded Payers Encounter Date Sequence Insurance Name Policy Number Policy Lott Covered Member ID Lott Member ID Guarantor Name 09/14/2024 2 *SELF PAY* Quitnon Graham 09/14/2024 1 [facility]: [facility] [place] [id number] Ynes Graham [id number] Ynes Graham Notes Date Note Type Note Provider Name and Address Organization Details Recorded Time 09/14/2024 text/html ONBOARDING{{DATE 09/14}}CHIEF COMPLAINT:Vomit and stomach cramps HPI:44-year-old female presenting today to [facility] care. Reports a 1 year history of intermittent episodes of nausea and vomiting. More frequent symptoms since July and she reports vomiting on average every other day.Reports a lifelong history of frequent stomach issues. She recalls having diarrhea on a daily basis all throughout college. Noted several food triggers including heavy or rich meals. Received a diagnosis of IBS. She did well for some time but approximately 5 years ago while in school for her [employer] she developed recurrent symptoms.Colonoscopy 2019 for complaints of erratic bowel habits showing diverticulosis in the sigmoid, biopsies negative for microscopic colitis. Recall at routine screening age.Currently reports fairly normal bowel habits. Has some lower abdominal cramping at times.-Chief complaint today of vomiting episodes. She notes several possible triggers. Frequent nausea in the morning. Will often have to pull the car over to the side of the road to vomit. She does have issues with motion sickness. Her daily routine is to have a coffee on an empty stomach and not eat until she arrives to work. If she has the urge to move her bowels and does not get to the bathroom immediately this will cause a vomiting episode. 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 Which has caused some stress possibly coinciding with more frequent episodes. She has received a diagnosis of bipolar in the past she reports anxiety in general may be a trigger for her GI symptoms. At times she will vomit once and her symptoms resolved. On occasion she can have multiple episodes of vomiting throughout the day. She denies any medications 1 year ago which coincide with symptom onset. She has been on a stable dose of Wegovy for over 2 years and has lost 83 pounds. Denies early satiety or postprandial nausea. She has had 2 pregnancies and has 3 children, one 10 years old and 8-year-old twins. During both pregnancies she had hyperemesis. Denies hematemesis or melena. Patient reports no alarm symptoms, including chronic gastrointestinal bleeding, persistent vomiting, fever, severe abdominal discomfort, progressive dysphagia, nocturnal manifestations, or involuntary weight loss.-She feels she eats a fairly healthy well-rounded diet. She denies alcohol on a regular basis. No marijuana or illicit substance use.She mention the symptoms to her PCP who arranged a course of omeprazole and gave her Zofran as needed. She has not started these medications and just completed antibiotic therapy for recurrent pneumonia.-Patient {{denies family history of colon cancer or advanced polyp in first degree relatives* carries a family history of colon cancer or advanced polyp in a first degree relative does not know biologic first degree relatives does not know family history}}and is {{up to date on colorectal cancer screening past due for colorectal cancer screening not yet due for routine colorectal cancer screening uncertain if due for colorectal cancer screening*}} JANUSZ OROSCO, [place] [address] [facility],[address] [address], [place], [address], [facility]/14/2024 13:14:50 OBGyn Episode No OBEpisode recorded.
--- OUTSIDE RECORDS SUMMARY | 2024-09-27 11:53 | XMS_ITS ---
Author Organization Unknown Problems Problem Status Start date Recorded date Hypercholesteremia active 2023-05-11 2023-04-20 3T18:54:45Z Obesity active 2023-02-25 6118-37-37H02:4 2:34Z Fatty liver active 2023-03-06 6890-56-55Z71:5 4:54Z Facial injury active 2023-05-11 4836-94-52F80: 51:53Z Breast cancer screening by mammogram active 2022 Immunization counseling active 2023-02-252023T20:57:49Z Encounter for wellness examination active 2023-07 Skin cancer screening active 2024-06-082023-07T20:58:44Z Colon cancer screening active 2023-02-2503-06T18:55:09Z Hypothyroidism active 2023-02-25 8171-15-96U95 :23:09Z Vomiting active 2024-09-15 3552-10-23I73:4 5:36Z Facial twitching resolved 2023-02-25 2023-05-11T 18:51:19Z Asthma active 2024-06-08 9696-78-56M94:0 2:30Z Cardiac risk counseling active 2023-02-252022T16:05:53Z Psychophysiologic sleep disorder active Anxiety active 2023-02-25 2207-63-58N58:3 4:27Z Cervical cancer screening active 2023-02-2512-06-20T20:58:32Z Vital Signs Observation / Date Jun 08, 2024 Aug 17, 2024 Body Mass Index (BMI) 27.22 kg/m2 27.22 kg/m 2 Height 172.72 cm Weight 81.33687980579077 kg 81.43584943 035143 kg Plan of Treatment Description Planned Activity [...] for telehealth services. Aug 17, 29, 29, 2024Jan , 2024Jan , 2024Jan , 2024 Encounters Encounter Type Performer Location Encounter Date Encoun ter Notes unknown [facility] no notes unknown Poppy Garcia - n o notes unknown Lynn [facility] no notes unknown [facility] no notes unknown CHRIS [facility] no notes unknown [facility] no notes Patient Care team information Name Category Status Period Participants - - Proposed period not known - - - Proposed period not known - - - Proposed period not known - - - Proposed period not known - - - Proposed period not known - - Episode of care-focu sed care team Proposed 1868-39-60J90:02:42+00:00 - 0727-63-90P79:02:42+00:00 - - Episode of care-focu sed care team Proposed 4593-15-06V82:02:44+00:00 - 0242-98-03W97:02:44+00:00 - - Episode of care-focu sed care team Proposed 3921-14-79I59:50:59+00:00 - 9877-98-95X27:50:59+00:00 - - Episode of care-focu sed care team Proposed 1785-03-55Y27:16:23+00:00 - 0751-01-63X94:16:23+00:00 - - Episode of care-focu sed care team Proposed 3220-81-77H50:21:13+00:00 - 5195-10-50S36:21:13+00:00 - - Episode of care-focu sed care team Proposed 2064-14-34G61:51:39+00:00 - 4448-45-30F43:51:39+00:00 - Notes Author - Date Note - 1758-32-99X53:02:4 5+00:00 No data available - 4736-07-68N73:51:3 9+00:00 No data available 2024-06-13 10:44:25 Asthma - 7206-01-75X29:02:43+00:00* No data available - 2293-20-61W57:21:14+00:00* Date of Service Physical Exam 2024-08-17 11:30:00 General: Well appear ing, no acute distressResp: Unlabored breathingPsych: Appropriate affect - 3139-32-42B68:16:23+00:00* Date of Service Physical Exam 2024-08-17 11:30:00 General: Well appear ing, no acute distressResp: Unlabored breathingPsych: Appropriate affect - 7788-88-19L11:16:23+00:00no notes- 4129-80-19X88:21:14+00:00* Date of Service Assessments 2024-08-17 11:30:00 Abdominal painNausea & vomitingStress at work - 5461-70-65F83:50:59+00:00no notes- 0779-71-58T64:16:23+00:00* Date of Service Review of Systems 2024-08-17 11:30:00 General: Denies feve rs or chillsResp: Denies shortness of breathCVS: Denies chest painGI: positive for nausea, vomiting, diarrhea, and constipationGU: Denies dysuria, hematuria, or urinary frequency - 4203-59-87Q40:02:43+00:00* No data available - 2572-95-84H50:02:45+00:00* Date of Service Assessments 2024-06-24 07:58:26 Asthma - 4489-40-92E66:02:43+00:00no notes- 6430-58-63B67:50:59+00:00* Date of Service Assessments 2024-06-08 12:15:00 Encounter for amirah ss examinationEncounter for behavioral health screeningEncounter for counseling regarding immunizationColon cancer screeningBreast cancer screeningCervical cancer screeningAsthmaSkin cancer screeningHypothyroidismAnxietyPsychophysiologic sleep disorderHistory of obesityHypercholesteremiaFatty liver - 5612-95-43W82:21:14+00:00no notes- 6452-62-65K63:02:43+00:00* Date of Service Assessments 2024-08-15 09:24:20 Vomiting - 1111-77-62U22:50:59+00:00* Date of Service Physical Exam 2024-06-08 12:15:00 General: Well-appear ing, no acute distressResp: No cough, SOB or wheezing, normal RRNS: Alert & oriented x 3Psych: Normal mood and affect - 4081-39-79H99:21:14+00:00* Date of Service Review of Systems 2024-08-17 11:30:00 General: Denies feve rs or chillsResp: Denies shortness of breathCVS: Denies chest painGI: positive for nausea, vomiting, diarrhea, and constipationGU: Denies dysuria, hematuria, or urinary frequency - 0082-92-65X05:51:39+00:00* No data available - 5469-04-93T83:16:23+00:00* Date of Service Assessments 2024-08-17 11:30:00 Abdominal painNausea & vomitingStress at work - 5437-19-22E31:50:59+00:00* Date of Service Review of Systems 2024-06-08 12:15:00 General: All other p ertinent ROS negative - 1650-80-58L71:02:45+00:00* No data available - 1097-75-50J12:51:39+00:00no notes
--- OUTSIDE RECORDS SUMMARY | 2024-09-27 11:53 | XMS_ITS | Data Portability ---
Author Organization [facility] YESI Santiago, [facility] Address [address], [address], [address] [address] [place] [address] Care Team Providers Care Human Factors Ergonomist Name Role Phone [facility] Primary Care Provider Assessment Encounter Date [...] initiate daily omeprazole. 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 I have suggest she initially try [...] ORDERS: Was a lab order placed to [employer], [employer], or [employer]?: Does the rn home care need to generate a manual prescription alert [...] Lab H pylori Ag, stool 2024 025 [facility], [address] [place] [address] 2nd Floor; [address],[place], [address], 13:15:52 tissue transgluta minase iga Ab, serum 2024 025 [facility], [address] [place] [address] 2nd Floor; [address],[place], [address], 13:15:52 iga, quantitati ve, serum 2024 025 [facility], [address] [place] [address] [address]nd [facility]; [address],[place], [address], 13:15:52 iron + TIBC + ferritin, serum 2024 025 [facility], [address] [place] [address] [address] [facility]; [address],[place], [address], 5 13:15:52 Referral None recorded. Procedures None recorded. Surgeries None recorded. Imaging None recorded. Medication Orders None recorded. Patient TargetsNo targets recorded. Patient Instructions Encounter Date Encounter Id Patient Instructions Last Modified By Organization Details Last Modified Time 09/14/2024 [id number] Chester Quick It was very nice to meet you today As discussed during our session, I've referred you to an [facility] Registered Dietitian. They will provide personalized nutrition [...] out if you need anything. Through the Cardio control leonel, you can: Self-schedule appointments with any [...] the cost of care, you can: Email [email or web address] or Click the following link to schedule a call with one of our billing specialists: [email or web address] Not available 09/14/2024 13:14:19 Reason for Referral None Reported. Problems Name Problem SNOMED Code Status Onset Date Resolution Date Notes Provider Name and Address Organization Details Recorded Time Irritable bowel syndrome 90655662 Completed 202409/14/2024 JANUSZ OROSCO, BUS STEWARD [address] [facility] [address] [address], [place], [address], [facility], [place] 12:38:47 Nausea and vomiting 41200438 Active 2024 JANUSZ OROSCO, BUS STEWARD [address] [facility] [address] [address], [place], [address], [facility], [place] 12:51:52 Abdominal distension, gaseous 260080438 Active 2024 JANUSZ OROSCO, BUS STEWARD [address] [facility] [address] [address], [place], [address], [facility], [place] 12:52:49 Problem Notes None recorded. Medical Equipment None Reported. Allergies Allergen ID Allergen Name Allergen Category Reaction Reaction Severity Criticality Documentation Date Start Date Code Code System Note Provider Name and Address Organization Details Recorded Time 58585 honey bee venom environme nt Not available Not available Not available 09/06/20242021 27045 7 RxNorm Not Available Not Available Not Available No known drug allergies Medications Name Sig Start Date Stop Date Status Note LastModified by Organization Details LastModified Time fluoxetine 40 mg capsule TAKE 1 CAPSULE BY MOUTH EVERY DAY active Not Available Not Available No t Available Round Top Thyroid 60 mg tablet TAKE 1 TABLET [...] completed Not Available Not Available Not Available [employer] [place] Thyroid 15 mg tablet TAKE 1 TABLET [...] Not Available Not Availa ble Not Available Torito Griffin [facility] spacer USE WITH INHALER DIRECTED 09/14 completed [...] Updated DateTime 09/14/2024 175.26 cm 26.9 kg/m2 54355.81 g JANUSZ OROSCO APRN [address] [facility],[address] [place] [phone], [facility] [place] 09/14/2024 12:02:07 Social History Question Answer Notes LastModified by Organizat ion Details LastModified Time Tobacco Smoking Status Never Smoker JANUSZ OROSCO APRN [address] [facility] [address] [place] [address] [employer] [place] 09/14/2024 12:05:35 What Is [...] disease or malignancy Medical History Condition Response Anxiety/Depression Y Diverticulitis/Diverticulosis Y Abdominal Pain Y Thyroid Disorder Y Irritable Bowel Syndrome Y Gynecological HistoryNo gynecological history recorded. Obstetrics History GPAL:G 0 P 0 0 0 0 Past Encounters Encounter ID Performer Location Encounter Start Date Encounter Closed Date Diagnosis/Indication Diagnosis SNOMED-CT Code Diagnosis ICD10 Code Diagnosis Note [id number] JANUSZ OROSCO, BUS STEWARD [facility] [address] [address] [place] [address] 09/14/2024 10:11:53 09/15/2024 12:16:11 Nausea and vomiting 02794449 R11.2 Abdominal distension, gaseous 188657516 R14.0 Health Concerns Section Related Observation LastModified by Organization Detai ls LastModified Time None Recorded Concern Status LastModified by Organization Details LastModified Time None Recorded Advance Directives Directive None Recorded Payers Encounter Date Sequence Insurance Name Policy Number Policy Lott Covered Member ID Lott Member ID Guarantor Name 09/14/2024 2 *SELF PAY* Quinton Graham 09/14/2024 1 [facility] ([facility]) [id number] Ynes Graham [id number] Ynes Graham Notes Date Note Type Note Provider Name and Address Organization Details Recorded Time 09/14/2024 text/html ONBOARDING{{DATE 09/14}}CHIEF COMPLAINT:Vomit and stomach cramps HPI:44-year-old female presenting today to establish care. 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 09/14/2024 13:14:50 OBGyn Episode No OBEpisode recorded.
== END 2024-09-27 10:34 | disposition home or self-care (01) ==
LOC: HO.HPSW 10:08
PROVIDERS: PCP Family Medicine; Visit Provider Nurse Practitioner Family
DX: J45.909 Unspecified asthma, uncomplicated (principal); J30.9 Allergic rhinitis, unspecified
CPT/HCPCS: 99214

== ENCOUNTER → 2024-09-27 10:07 | Outpatient (BNVA) | payer BC, SELFPAY | PROVIDERS: PCP Family Medicine; Visit Provider Nurse Practitioner Family ==

== ENCOUNTER 2024-12-27 10:04 | Outpatient (AMB) | payer BC, SELFPAY ==
--- NOTE | 2024-12-27 10:15 | A.OFFVIS_ITS ---
Vital Signs 12/27/24 10:16 Height 5 ft 8 in Weight 183 lb 8 oz BMI 27.9 BP 116/74 Blood Pressure Location Lt brachial Position Sitting Pulse 61 Pulse Source Pulse Oximeter Pulse Oximetry (%) 98 Oxygen Delivery Method Room Air Intake Visit Reasons: asthma Allergies No Known Allergies Allergy (Verified 12/27/24 10:18) HPI HPI asthma: Details: Ynes is a pleasant 44-year-old female, former minimal smoker, with underlying asthma and hypothyroidism. She was initially referred by PCP for pulmonary evaluation for chronic cough treated with Augmentin in June, had resolution of cough but symptoms recurred, been treated with doxycycline and prednisone with resolution of symptoms. Since last visit she has on well controlled on Wixela 250 mcg, rarely requiring albuterol MDI. She endorses seasonal allergies which she has been using daily antihistamine as well as Flonase with good effe ct. She is going to hold off on Singulair at this time. She denies any visits to urgent care hospitalizations related to respiratory distress since last visit. She has upcoming appointment with GI specialist in [place] to further assess acid reflux and dysphagia, possible cyclical vomiting syndrome. [facility] Social History Patient Tobacco Use Status: Former Tobacco user Review of Systems Const Denies chills, Denies excessive sweating, Denies fever(s), Denies headache(s) and Denies night sweats Eyes Denies dry eyes, Denies irritation and Denies itchy eyes ENT Reports Normal hearing present, Denies headache(s), Denies nasal congestion, Denies nasal discharge, Denies post nasal drip and Denies sore throat Card Denies chest pain, Denies chest pain at rest, Denies chest pain with activity, Denies claudication, Denies leg edema, Denies dyspnea, Denies dyspnea on exertion, Denies orthopnea and Denies paroxysmal nocturnal dyspnea Resp Denies chest congestion, Denies cough, Denies excessive phlegm production, Denies pain on inspiration, Denies pain with cough, Denies dyspnea, Denies dyspnea on exertion, Denies stridor and Denies wheezing Musc Denies myalgias Neuro Reports Normal hearing present and Denies headache(s) Endo Denies excessive sweating Diego/Lymph Denies lymphadenopathy Aller/Immun Denies itchy eyes, Denies seasonal rhinorrhea and Denies wheezing Physical Exam Vital Signs: Last Vital Signs Pulse 61 12/27/24 10:16 BP 116/74 12/27/24 10:16 Pulse Ox 98 12/27/24 10:16 Oxygen Delivery Method Room Air 12/27/24 10:16 BMI result Body Mass Index 27.9 Const General: cooperative, healthy appearing, comfortable, no acute distress, well developed and alert Orientation/consciousness: patient oriented x3 Limitations: no limitations HEENT Head: Yes normal to inspection, Yes normocephalic and Yes atraumatic Ears: hearing grossly normal bilaterally and external ears normal Eyes General: appearance normal, both eyes and all related structures Eyelids: Yes eyelids normal Sclerae: sclerae normal EOM: EOMs intact bilaterally Neck Neck: Yes normal visual inspection and Yes no lymphadenopathy Lymphatic: no lymphadenopathy noted Chest Chest palpation & inspection: normal inspection of the chest Resp Effort & Inspection: normal respiratory effort, able to speak in complete sentences, no audible wheezes, no cough, no stridor, not tachypneic, no tripod positioning and no use of accessory muscles Auscultation: clear to auscultation bilaterally Cardio Jugular venous distension: no JVD Rate: regular rate Rhythm: regular rhythm Skin Other: warm, dry General skin exam: no rashes or lesions noted Neuro General: patient oriented x3 Cranial nerves: Yes Normal hearing present Cognition (Neuro): normal cognition Gait exam (Neuro): Normal gait present Extrem General: Yes normal to inspection, Yes capillary refill normal, Yes no clubbing, cyanosis or edema and Yes no pedal edema Psych Appearance: grossly normal and well kempt Speech and movement: Normal speech and movement present and Clear speech present Affect: normal affect Attitude: cooperative Thought process: Normal thought process present Thought content: Normal thought content present Insight: Good insight present (Psych) Judgement: Good judgement present (Psych) Assessment & Plan Assessment & Plan (1) Asthma: Code(s): J45.909 - Unspecified asthma, uncomplicated Category: Medical (2) Allergic rhinitis: Code(s): J30.9 - Allergic rhinitis, unspecified Category: Medical Plan Ynes reports good control of respiratory symptoms on current regimen, advised to continue Wixela and albuterol MDI/neb PRN. She is aware to call if symptoms become less controlled.. We did discuss the possibility of microaspiration component with persistent vomiting, which she is seeking second opinion in [place] for GI evaluation. All questions were answered and patient is in agreement of plan. Will follow up in 6 months or sooner if needed. Medications: Refilled albuterol sulfate 2.5 mg (3 mL) inhalation Q4-6H PRN 180 mL 3RF shortness of breath or wheezing fluticasone propion-salmeterol 250-50 mcg/dose (Wixela Inhub) 1 inh inhalation Q12H 60 ea 6RF Discontinued montelukast (Singulair) Discontinued Reason: Patient Completed Course 10 mg PO BEDTIME 30 tabs 3RF Coding Level of Care Code Est Pt Level 4 (49763) Diagnoses Asthma J45.909 Allergic rhinitis J30.9
[2024-12-27 10:16] VITALS: BP 116/74; PULSE 61; O2SAT 98; BMI 27.9
== END 2024-12-27 10:43 | disposition home or self-care (01) ==
LOC: HO.HPSW 10:05
PROVIDERS: PCP Family Medicine; Visit Provider Nurse Practitioner Family
DX: J45.909 Unspecified asthma, uncomplicated (principal); J30.9 Allergic rhinitis, unspecified
CPT/HCPCS: 99214

== ENCOUNTER → 2024-12-27 10:04 | Outpatient (BNVA) | payer BC, SELFPAY | PROVIDERS: PCP Family Medicine; Visit Provider Nurse Practitioner Family ==